=== PATIENT | male | born 1945 | race Caucasian/White ===

== ENCOUNTER 2021-12-02 09:37 | Emergency (ER) | payer MEDICARE, MEDICAID ==
[~2021-12-02] VITALS: Ht 154.9 cm; Wt 79.0 kg
[2021-12-02] MEDS ORDERED: IBUPROFEN 600MG TABLET PO STA (11:02)
[2021-12-02] MEDS ORDERED: BACITRACIN ZINC OINT UDPKT TOP ONE (11:15)
[2021-12-02 13:05] LABS: BASOPHILS % 0.4 % (0.0-2.0); EOSINOPHILS % 0.2 % (0.0-5.0); HEMATOCRIT. 40.1 % (42.0-52.0); HEMOGLOBIN. 13.7 g/dL (14.0-18.0); MEAN CORPUSCULAR VOLUME 90.6 fL (80.0-94.0); MEAN PLATELET VOLUME 7.3 fl (7.4-10.4); MONOCYTES % 6.7 % (2.0-8.0); NEUTROPHILS % 74.7 % (40.0-76.0); PLATELET 396 x1000/uL (130-400); RED BLOOD CELL COUNT 4.42 mill/uL (4.7-6.1); RED CELL DISTRIBUTION WIDTH 14.1 % (11.6-14.6)
[2021-12-02 13:21] LABS: CHLORIDE 99 mEq/L (98-107)
[2021-12-02] MEDS ORDERED: LIDOCAINE HCL 1% 20ML VIAL (Pyxis) INJ INFIL ONE (13:45)
[2021-12-02] MEDS ORDERED: BACITRACIN ZINC OINT UDPKT TOP NR (14:00)
[2021-12-02] MEDS ORDERED: IBUPROFEN 600MG TABLET PO NR (14:00)
[2021-12-02] MEDS ORDERED: NAPR-681 PO (14:10)
[2021-12-02] MEDS ORDERED: SULF1TAB48 PO (14:10)
[2021-12-02] MEDS ORDERED: AMOX-424 PO (14:10)
[2021-12-02 14:29] VITALS: BP 165/67
== END 2021-12-02 14:43 | disposition home or self-care (01) ==
LOC: ER 09:37
DX: L03.011 Cellulitis of right finger (principal); H54.7 Unspecified visual loss
CPT/HCPCS: 36415; 73140; 80048; 82962; 85025; 99284; J3490